=== PATIENT | female | born 1950 | race Caucasian/White ===

== ENCOUNTER 2019-03-18 08:39 | Outpatient (CLI) | payer OTHER ==
[2019-03-18 09:52] LABS: A1C 6.2 % (<5.7); HDL 56 mg/dL (>40)
[2019-03-18 10:41] LABS: eGFR (Non-African) > 60
== END 2019-03-18 08:42 ==
LOC: LAB 08:39
PROVIDERS: ATTEND Family Medicine
DX: E11.9 Type 2 diabetes mellitus without complications (principal)
CPT/HCPCS: 36415; 80053; 80061; 83036

== ENCOUNTER 2019-04-26 08:54 | Day surgery (SDC) | payer OTHER ==
[~2019-04-26 08:54] MED LIST: LACTATED RINGERS 1,000 ML IV.SOLN IV ONE; LIDOCAINE HCL 2% PF 100MG/5ML VIAL IJ ONE; PROPOFOL 200 MG/20 ML VIAL IV ONE
--- NOTE | 2019-04-28 12:22 | GI Report ---
DATE OF PROCEDURE: 04/26/2019 REFERRING PHYSICIAN: Dr. Blair. PROCEDURE PERFORMED: Colonoscopy, biopsies, polypectomy. SURGEON: Bernarda Garcia M.D., FNoe. INDICATION FOR PROCEDURE: 68-year-old woman who has had a number of polyps removed before in [place], [place]. The last one was in January of 2017. They piecemeal removed a polyp from the ascending colon. She has had serrated adenomas in the past. She denies family history of colorectal cancer. She is referred for surveillance follow-up. PROCEDURE MEDICATION: Propofol, as per Anesthesia. DESCRIPTION OF PROCEDURE: An [employer] video colonoscope was advanced through the rectum and slowly advanced to the cecum. The appendiceal orifice, terminal ileum are normal. In the mid ascending colon about 5 cm at least above the ileocecal valve one could see the tattoo where a polyp appeared to have been removed off the fold. We took some biopsies around to see if there was any residual polyp. It grossly does not look like residual left. In the mid transverse colon, though, the patient had a 3-4 mm sessile polyp removed with a cold snare. Descending colon, sigmoid: Some redundancy. No obvious intraluminal lesions noted. Retroflexion in the rectum was normal. The patient tolerated the procedure well. FINDINGS: 1. Polyp of transverse colon, biopsies taken at the piecemeal polypectomy site and mid ascending colon. RECOMMENDATIONS: 1. High fiber diet, diabetic. 2. Pending the pathology reports, 3 years if they are serrated adenomas, 5 years if benign and just a regular adenoma follow-up. BERNARDA GARCIA M.D., F.A.C.P. MADHAV/zachary Job#: [id number] Cc: Dr. Johnnie CASEY
== END 2019-04-26 10:55 | disposition home or self-care (01) ==
LOC: OPSURG 08:54
PROVIDERS: ATTEND Internal Medicine Gastroenterology
DX: K63.5 Polyp of colon (principal); K63.89 Other specified diseases of intestine
CPT/HCPCS: 45380; 45385; J2001; J2704; J7120